=== PATIENT | male | born 1960 | race Caucasian/White ===

== ENCOUNTER 2021-10-28 21:34 | Emergency (ER) | payer OTHER ==
[~2021-10-28] VITALS: Ht 177.8 cm; Wt 78.0 kg
[2021-10-28] MEDS ORDERED: NAPROSYN500 MG PO (22:47)
[2021-10-28] MEDS ORDERED: PREDNISONE 20 M20 MG PO (22:47)
[2021-10-28 23:22] VITALS: BP 127/89
== END 2021-10-28 23:30 | disposition home or self-care (01) ==
LOC: ER 21:34
DX: M25.531 Pain in right wrist (principal)